=== PATIENT | female | born 1995 | race American Indian/Alaskan Native ===

== ENCOUNTER 2018-04-23 15:04 | Emergency (ER) | payer SELFPAY ==
[2018-04-23] MEDS ORDERED: TYLENOL PO ONE (15:39)
[2018-04-23] MEDS ORDERED: NACL 0.9% 1000 ML 1,000 ML IV ONE ×2 (17:55→19:16)
[2018-04-23] MEDS ORDERED: MOTRIN PO ONE (17:55)
[2018-04-23 18:07] LABS: Basophils % (Auto) 0.2 % (0.0-1.8); Eosinophils % (Auto) 0.1 % (0.0-4.3); Hematocrit 36.8 % (30.3-42.9); Hemoglobin 11.9 gm/dl (10.1-14.3); Lymphocytes # (Auto) 0.4 K/mm3 (1.2-5.4); Lymphocytes % (Auto) 7.9 % (13.4-35.0); Mean Corpuscular HGB Conc 32 % (30-34); Mean Corpuscular Volume 76 fl (79-97); Monocytes # (Auto) 0.3 K/mm3 (0.0-0.8); Monocytes % (Auto) 5.6 % (0.0-7.3); Platelet Count 276 K/mm3 (140-440); Red Blood Count 4.87 M/mm3 (3.65-5.03); Red Cell Distribution Width 13.9 % (13.2-15.2)
[2018-04-23 18:19] LABS: Mean Corpuscular Hemoglobin 24 pg (28-32)
[2018-04-23 18:23] LABS: BUN/Creatinine Ratio 13; Blood Urea Nitrogen 4 mg/dL (7-17)
[2018-04-23 18:38] LABS: Calcium 9.1 mg/dL (8.4-10.2); Hemolysis Index 5
--- NOTE | 2018-04-23 18:46 | Emergency Department Report ---
- General Chief Complaint: Upper Respiratory Infection Stated Complaint: FLU LIKE SYM Time Seen by Provider: 04/23/18 17:51 Source: patient, EMS Mode of arrival: Ambulatory Limitations: No Limitations - History of Present Illness Initial Comments: This is a 23-year-old female nontoxic, well nourished in appearance, no acute signs of distress presents to the ED with c/o of productive cough, body aches, fever, chills, rhinorrhea, nasal congestion x1 day. Patient stated that son has been diagnosed with the flu. Patient describes productive cough as yellow mucus production. Patient denies any sick contact. Patient denies any recent travels, long car, recent hospital stays. Patient denies any calf pain or calf tenderness. Patient denies any chest pain, short of breath, nausea, vomiting, hemoptysis, numbness, tingling, headache or stiff neck. Patient denies any allergies or PMH. MD Complaint: cough, rhinorrhea, nasal congestion, other (body aches) -: days(s) (1) Severity: mild Severity scale (0 -10): 8 Quality: aching Consistency: constant Improves With: nothing Worsens With: nothing Context: sick contacts Associated Symptoms: fever, chills, rhinorrhea, nasal congestion, cough. denies: myalgias, diaphoresis, headache, sore throat, stiff neck, chest pain, shortness of breath, abdominal pain, nausea, vomiting, diarrhea, dysuria, rash, confusion, right sweats, weight loss, epistaxis, hoarseness, ear pain Treatments Prior to Arrival: none - Related Data Previous Rx's Medication Instructions Recorded Last Taken Type Benzonatate [Tessalon Perle] 100 mg PO Q6H PRN 20 Days capsule 04/23/18 Unknown Rx Ibuprofen [Motrin] 600 mg PO Q8H PRN #20 tablet 04/23/18 Unknown Rx Oseltamivir [Tamiflu] 75 mg PO BID #14 cap 04/23/18 Unknown Rx Allergies Allergy/AdvReac Type Severity Reaction Status Date / Time No Known Allergies Allergy Verified 04/23/18 15:32 ED Review of Systems ROS: Stated complaint: FLU LIKE SYM Other details as noted in HPI Constitutional: chills, fever Eyes: denies: eye pain, eye discharge, vision change ENT: congestion. denies: ear pain, throat pain Respiratory: cough. denies: shortness of breath, wheezing Cardiovascular: denies: chest pain, palpitations Endocrine: no symptoms reported Gastrointestinal: denies: abdominal pain, nausea, diarrhea Genitourinary: denies: urgency, dysuria, discharge Musculoskeletal: denies: back pain, joint swelling, arthralgia Skin: denies: rash, lesions Neurological: weakness. denies: headache, paresthesias Psychiatric: denies: anxiety, depression Hematological/Lymphatic: denies: easy bleeding, easy bruising ED Past Medical Hx - Past Medical History Previous Medical History?: No - Surgical History Past Surgical History?: No - Social History Smoking Status: Current Every Day Smoker Substance Use Type: None - Medications Home Medications: Home Medications Medication Instructions Recorded Confirmed Last Taken Type Benzonatate [Tessalon Perle] 100 mg PO Q6H PRN 20 Days capsule 04/23/18 Unknown Rx Ibuprofen [Motrin] 600 mg PO Q8H PRN #20 tablet 04/23/18 Unknown Rx Oseltamivir [Tamiflu] 75 mg PO BID #14 cap 04/23/18 Unknown Rx ED Physical Exam - General Limitations: No Limitations General appearance: alert, in no apparent distress - Head Head exam: Present: atraumatic, normocephalic - Eye Eye exam: Present: normal appearance - ENT ENT exam: Present: normal exam, normal orophraynx - Neck Neck exam: Present: normal inspection, full ROM. Absent: tenderness, meningismus - Respiratory Respiratory exam: Present: normal lung sounds bilaterally. Absent: respiratory distress, wheezes, rales, rhonchi, stridor, chest wall tenderness, accessory muscle use, decreased breath sounds, prolonged expiratory - Cardiovascular Cardiovascular Exam: Present: regular rate, normal rhythm, tachycardia, normal heart sounds. Absent: bradycardia, irregular rhythm, systolic murmur, diastolic murmur, rubs, gallop - Extremities Exam Extremities exam: Present: normal inspection, full ROM - Back Exam Back exam: Present: normal inspection, full ROM - Neurological Exam Neurological exam: Present: alert, oriented X3 - Psychiatric Psychiatric exam: Present: normal affect, normal mood - Skin Skin exam: Present: warm, dry, intact, normal color. Absent: rash ED Course Vital Signs 04/23/18 04/23/18 04/23/18 15:33 19:10 21:26 Temperature 102.9 F H 98.8 F 98.6 F Pulse Rate 134 H 113 H 99 H Respiratory 16 16 18 Rate Blood Pressure 133/72 115/60 Blood Pressure 127/80 [Left] O2 Sat by Pulse 98 99 99 Oximetry - Reevaluation(s) Reevaluation #1: 04/23/18 21:31 Patient is speaking in full sentences with no signs of distress noted. ED Medical Decision Making - Lab Data Result diagrams: 04/23/18 18:00 04/23/18 18:00 - Medical Decision Making This is a 23-year-old female that presents with influenza. Patient is stable and was examined by me. Chest x-ray has been obtained and dictated by radiologist with normal exam. Patient is notified of x-ray results with no questions noted. Due to patient son having symptoms of flu and son is positive, I gm treat patient with tamiflu. Patient was instructed to increase hydration, rest and take Motrin for fever episodes. Patient received 2 L normal saline, motrin and tesslone perrls in the ED. Vitals stable. Patient is nonfebrile and normal heart rate. Patient was instructed Follow-up with a primary care doctor in 3-5 days or if symptoms worsen and continue return to emergency room as soon as possible. At time time of discharge, the patient does not seem toxic or ill in appearance. No acute signs of distress noted. Patient agrees to discharge treatment plan of care. No further questions noted by the patient. Critical care attestation.: If time is entered above; I have spent that time in minutes in the direct care of this critically ill patient, excluding procedure time. ED Disposition Clinical Impression: Influenza Disposition: DC-01 TO HOME OR SELFCARE Is pt being admited?: No Does the pt Need Aspirin: No Condition: Stable Instructions: Influenza (ED), Fever in Adults (ED) Additional Instructions: Follow-up with a primary care doctor in 3-5 days or if symptoms worsen and continue return to emergency room as soon as possible. Increased rest, hydration and take Motrin as prescribed during fever episodes. Prescriptions: Benzonatate [Tessalon Perle] 100 mg PO Q6H PRN 20 Days capsule PRN Reason: Cough Ibuprofen [Motrin] 600 mg PO Q8H PRN #20 tablet PRN Reason: Pain Oseltamivir [Tamiflu] 75 mg PO BID #14 cap Referrals: PRIMARY CARE, [Primary Care Provider] - 3-5 Days GOODJOIN,TOMAS B, MD [Staff Physician] - 3-5 Days [facility] [Outside] - 3-5 Days [facility] [Outside] - 3-5 Days Forms: Work/School Release Form(ED)
--- NOTE | 2018-04-23 20:50 | XRay Report ---
FINAL REPORT EXAM: XR CHEST ROUTINE 2V HISTORY: cough TECHNIQUE: 2 views of the chest. PRIORS: None. FINDINGS: The cardiomediastinal silhouette appears normal. The lungs are clear. The bones and soft tissues are unremarkable. IMPRESSION: No evidence of acute cardiopulmonary disease
[2018-04-23 21:27] VITALS: BP 127/80
== END 2018-04-24 00:10 | disposition home or self-care (01) ==
LOC: EDSEX → ED 15:04
DX: J11.1 Influenza due to unidentified influenza virus with other respiratory manifestations (principal); F17.200 Nicotine dependence, unspecified, uncomplicated
CPT/HCPCS: 36415; 71046; 80048; 85025; 99284; J7030

== ENCOUNTER 2018-09-01 23:01 | Emergency (ER) | payer SELFPAY ==
[2018-09-01 23:26] VITALS: BP 123/87
[2018-09-01 23:50] LABS: Basophils % (Auto) 0.4 % (0.0-1.8); Eosinophils # (Auto) 0.1 K/mm3 (0.0-0.4); Eosinophils % (Auto) 1.6 % (0.0-4.3); Hematocrit 38.9 % (30.3-42.9); Hemoglobin 12.5 gm/dl (10.1-14.3); Lymphocytes # (Auto) 1.7 K/mm3 (1.2-5.4); Mean Corpuscular HGB Conc 32 % (30-34); Mean Corpuscular Volume 78 fl (79-97); Monocytes # (Auto) 0.2 K/mm3 (0.0-0.8); Monocytes % (Auto) 3.7 % (0.0-7.3); Platelet Count 272 K/mm3 (140-440); Red Blood Count 4.99 M/mm3 (3.65-5.03); Red Cell Distribution Width 14.7 % (13.2-15.2)
[2018-09-02 00:16] LABS: Alanine Aminotransferase 11 units/L (7-56); Albumin 3.8 g/dL (3.9-5); Blood Urea Nitrogen 7 mg/dL (7-17); Calcium 9.1 mg/dL (8.4-10.2); Hemolysis Index 6
[2018-09-02 00:22] LABS: BUN/Creatinine Ratio 18
== END 2018-09-02 06:13 | disposition home or self-care (01) ==
LOC: ED 23:01
DX: R10.9 Unspecified abdominal pain (principal); R11.10 Vomiting, unspecified; Z53.21 Procedure and treatment not carried out due to patient leaving prior to being seen by health care provider
CPT/HCPCS: 36415; 80053; 81001; 84703; 85025

== ENCOUNTER 2021-09-15 12:27 | Emergency (ER) | payer SELFPAY ==
[2021-09-15 13:26] VITALS: BP 109/67
[2021-09-15] MEDS ORDERED: ACETAMINOPHEN 325 MG TAB PO ONE (13:26)
[2021-09-15] MEDS ORDERED: BENZONATATE 100 MG CAP PO ONE (19:02)
[2021-09-15] MEDS ORDERED: KETOROLAC 10 MG TAB PO ONE (19:02)
[2021-09-15] MEDS ORDERED: ACETAMINOPHEN W/CODEINE 300-30 MG TAB PO ONE (19:02)
[2021-09-15] MEDS ORDERED: predniSONE 20 MG TAB PO ONE (19:02)
--- NOTE | 2021-09-15 19:31 | XRay Report ---
CHEST 2 VIEWS INDICATION / CLINICAL INFORMATION: fever, sob, congestion. COMPARISON: 04/23/2018 FINDINGS: SUPPORT DEVICES: None. HEART / MEDIASTINUM: No significant abnormality. LUNGS / PLEURA: There are pulmonary opacities in both lung bases highly suspect for bibasilar pneumon ia. No significant pleural effusion. No pneumothorax. ADDITIONAL FINDINGS: No significant additional findings. IMPRESSION: 1. Bibasilar pulmonary opacities, most likely secondary to pneumonia. Short-term follow-up radiograph s suggested to ensure clearance. Signer Name: Bijal Perez MD Signed: 09/15/2021 7:27 PM Workstation Name: [id number]
[2021-09-15] MEDS ORDERED: AMOXICILLIN 500 MG CAP PO ONE (20:07)
[2021-09-15] MEDS ORDERED: AZITHROMYCIN 250 MG TAB PO ONE (20:08)
--- NOTE | 2021-09-15 20:34 | Emergency Department Report ---
- General Chief Complaint: Upper Respiratory Infection Stated Complaint: COUGH/CP Time Seen by Provider: 09/15/21 18:42 Source: patient Mode of arrival: Ambulatory Limitations: No Limitations - History of Present Illness Initial Comments: 26 yo black female with no pmh presents to ed for evaluation of 7 day history of worsening cough, congestion, cp, sob, and dizziness. She states that she only has cp when she coughs and has also had a fever for the past few days. She states that she has had some increasing fatigue with decreased appetite. MD Complaint: fever, cough, rhinorrhea, nasal congestion -: Gradual, days(s) (7) Severity: moderate, severe Severity scale (0 -10): 10 Quality: aching Consistency: intermittent Worsens With: other (cough) Associated Symptoms: fever, myalgias, headache, rhinorrhea, nasal congestion, cough, chest pain, shortness of breath, nausea. denies: chills, diaphoresis, sore throat, stiff neck, vomiting, diarrhea, dysuria Treatments Prior to Arrival: none - Related Data Previous Rx's Medication Instructions Recorded Last Taken Type Benzonatate [Tessalon Perle] 100 mg PO Q6H PRN 20 Days capsule 04/23/18 Unknown Rx Ibuprofen [Motrin] 600 mg PO Q8H PRN #20 tablet 04/23/18 Unknown Rx Oseltamivir [Tamiflu] 75 mg PO BID #14 cap 04/23/18 Unknown Rx Amoxicillin [Trimox CAP] 1,000 mg PO TID 7 Days #42 capsule 09/15/21 Unknown Rx Azithromycin [Zithromax TAB] 250 mg PO DAILY #4 tab 09/15/21 Unknown Rx Benzonatate [Tessalon Perles] 100 mg PO Q8HR #21 cap 09/15/21 Unknown Rx Prednisone [predniSONE 10 mg 10 mg PO .TAPER #1 pack 09/15/21 Unknown Rx (6-Day Pack, 21 Tabs)] guaiFENesin/CODEINE [Robitussin AC] 10 ml PO TID PRN #120 ml 09/15/21 Unknown Rx Allergies Allergy/AdvReac Type Severity Reaction Status Date / Time No Known Allergies Allergy Verified 04/23/18 15:32 ED Review of Systems ROS: Stated complaint: COUGH/CP Other details as noted in HPI Comment: All other systems reviewed and negative Constitutional: fever, malaise, weakness. denies: chills ENT: congestion Respiratory: shortness of breath Cardiovascular: chest pain. denies: palpitations, edema, syncope Gastrointestinal: nausea. denies: abdominal pain, vomiting Genitourinary: denies: urgency, dysuria, frequency, hematuria Musculoskeletal: back pain Skin: denies: rash, lesions Neurological: headache, weakness ED Past Medical Hx - Past Medical History Previous Medical History?: No - Surgical History Past Surgical History?: No - Social History Smoking Status: Former Smoker Substance Use Type: Marijuana - Medications Home Medications: Home Medications Medication Instructions Recorded Confirmed Last Taken Type Benzonatate [Tessalon Perle] 100 mg PO Q6H PRN 20 Days capsule 04/23/18 Unknown Rx Ibuprofen [Motrin] 600 mg PO Q8H PRN #20 tablet 04/23/18 Unknown Rx Oseltamivir [Tamiflu] 75 mg PO BID #14 cap 04/23/18 Unknown Rx Amoxicillin [Trimox CAP] 1,000 mg PO TID 7 Days #42 capsule 09/15/21 Unknown Rx Azithromycin [Zithromax TAB] 250 mg PO DAILY #4 tab 09/15/21 Unknown Rx Benzonatate [Tessalon Perles] 100 mg PO Q8HR #21 cap 09/15/21 Unknown Rx Prednisone [predniSONE 10 mg 10 mg PO .TAPER #1 pack 09/15/21 Unknown Rx (6-Day Pack, 21 Tabs)] guaiFENesin/CODEINE [Robitussin AC] 10 ml PO TID PRN #120 ml 09/15/21 Unknown Rx ED Physical Exam - General Limitations: No Limitations General appearance: alert, in no apparent distress, lethargic - Head Head exam: Present: atraumatic, normocephalic - Eye Eye exam: Present: normal appearance. Absent: conjunctival injection - ENT ENT exam: Absent: normal exam (bilateral nasal mucosal edema), normal orophraynx (erythema to posterior oropharynx) - Neck Neck exam: Present: normal inspection. Absent: tenderness, lymphadenopathy - Respiratory Respiratory exam: Present: chest wall tenderness, decreased breath sounds. Absent: respiratory distress, wheezes, rales, rhonchi, stridor - Cardiovascular Cardiovascular Exam: Present: tachycardia, normal heart sounds - GI/Abdominal GI/Abdominal exam: Present: soft, normal bowel sounds. Absent: distended, tenderness, guarding, rebound, rigid - Extremities Exam Extremities exam: Present: normal inspection, full ROM, normal capillary refill. Absent: tenderness, pedal edema, joint swelling, calf tenderness - Back Exam Back exam: Present: normal inspection, full ROM - Neurological Exam Neurological exam: Present: alert, oriented X3, normal gait - Psychiatric Psychiatric exam: Present: normal affect, normal mood - Skin Skin exam: Present: warm, dry, intact, normal color ED Course Vital Signs 09/15/21 09/15/21 13:22 20:46 Temperature 100.1 F H Pulse Rate 113 H 110 H Respiratory 17 18 Rate Blood Pressure 109/67 109/67 [Left] O2 Sat by Pulse 97 97 Oximetry ED Medical Decision Making - Radiology Data Radiology results: report reviewed, image reviewed Chest xray: FINDINGS: SUPPORT DEVICES: None. HEART / MEDIASTINUM: No significant abnormality. LUNGS / PLEURA: There are pulmonary opacities in both lung bases highly suspect for bibasilar pneumonia. No significant pleural effusion. No pneumothorax. ADDITIONAL FINDINGS: No significant additional findings. IMPRESSION: 1. Bibasilar pulmonary opacities, most likely secondary to pneumonia. Short- term follow-up radiographs suggested to ensure clearance. - Medical Decision Making 26 yo black female with no pmh presents to ed for evaluation of 7 day history of worsening cough, congestion, cp, sob, and dizziness. She states that she only has cp when she coughs and has also had a fever for the past few days. She states that she has had some increasing fatigue with decreased appetite. CXR positive for bibasilar pneumonia. Patient will be treated with amoxicillin 1000mg TID for 7 days, Azithromycin pack, prednisone dose pack, tessalone pearles, and robitussin AC. She is advised to take medications as prescribed and follow with pcp in 3-4 days for re evaluation and possible repeat xray. She is advised to return to Ed as needed. She verbalized understanding of agreement with plan of care. Critical care attestation.: If time is entered above; I have spent that time in minutes in the direct care of this critically ill patient, excluding procedure time. ED Disposition Clinical Impression: Community acquired pneumonia Qualifiers: Laterality: unspecified laterality Qualified Code(s): J18.9 - Pneumonia, unspecified organism Disposition: HOME / SELF CARE / HOMELESS Is pt being admited?: No Does the pt Need Aspirin: No Condition: Stable Instructions: Community-Acquired Pneumonia, Adult, [id number], Bacterial Pneumonia (ED) Additional Instructions: Take medications as prescribed. Follow-up with primary care provider in 3 to 4 days for recheck. Return to the emergency department for any concerning symptoms. Prescriptions: Prednisone [predniSONE 10 mg (6-Day Pack, 21 Tabs)] 10 mg PO .TAPER #1 pack guaiFENesin/CODEINE [Robitussin AC] 10 ml PO TID PRN #120 ml PRN Reason: Cough Benzonatate [Tessalon Perles] 100 mg PO Q8HR #21 cap Amoxicillin [Trimox CAP] 1,000 mg PO TID 7 Days #42 capsule Azithromycin [Zithromax TAB] 250 mg PO DAILY #4 tab Referrals: FABIANO AGUILAR MD [Staff Physician] - 3-5 Days Forms: Work/School Release Form(ED) Time of Disposition: 20:34
== END 2021-09-15 20:46 | disposition home or self-care (01) ==
LOC: ED 12:27
DX: J18.9 Pneumonia, unspecified organism (principal); Z79.899 Other long term (current) drug therapy
CPT/HCPCS: 71046; 99283